=== PATIENT | male | born 1980 | race Caucasian/White ===

== ENCOUNTER 2017-11-13 14:25 | Emergency (ER) | payer SELFPAY ==
[~2017-11-13] VITALS: Ht 185.4 cm; Wt 101.2 kg
[2017-11-13 14:29] VITALS: BP 156/88
== END 2017-11-13 15:53 | disposition home or self-care (01) ==
LOC: ED 14:45
DX: M79.671 Pain in right foot (principal); M10.9 Gout, unspecified; Z88.0 Allergy status to penicillin
CPT/HCPCS: 36415; 84550; 99285